=== PATIENT | female | born 1960 | race Caucasian/White ===

== ENCOUNTER → 2018-01-06 | Outpatient (CLI) | payer BC ==
[~2018-01-06] MED LIST: CALTRATE 600 +1 TAB PO; MASON NATURAL1200 MG PO; MULTIPLE VITAMI1 CAP PO; NATURE'S BLEND1 SG3 PO; VITAMIN B12 681 TAB PO; WELLBUTRIN XL150 MG PO
== END ==
LOC: MC.RAD 10:57
DX: N63.31 Unspecified lump in axillary tail of the right breast (principal)

== ENCOUNTER 2018-01-20 08:25 | Day surgery (SDC) | payer BC ==
[~2018-01-20] VITALS: Ht 162.6 cm; Wt 73.7 kg
[2018-01-20 08:44] VITALS: BP 112/67; PULSE 73; TEMP 98.2
[2018-01-20 10:43] VITALS: BP 114/57; PULSE 73; TEMP 98
[2018-01-20] MEDS ORDERED: NORCO 325 MG-51 TAB PO (10:48)
[2018-01-20 11:00] VITALS: BP 125/70; PULSE 70
[2018-01-20 11:15] VITALS: BP 121/64; PULSE 61
== END 2018-01-20 11:39 | disposition home or self-care (01) ==
LOC: SDCO 08:25
DX: C50.411 Malignant neoplasm of upper-outer quadrant of right female breast (principal); F32.9 Major depressive disorder, single episode, unspecified; Z90.710 Acquired absence of both cervix and uterus; Z90.721 Acquired absence of ovaries, unilateral; Z80.42 Family history of malignant neoplasm of prostate; Z80.0 Family history of malignant neoplasm of digestive organs; Z80.1 Family history of malignant neoplasm of trachea, bronchus and lung
CPT/HCPCS: C1788; J0690; J1644; J1885; J2250; J2405; J2704; J3010; J7120

== ENCOUNTER → 2018-03-17 | Outpatient (CLI) | payer BC ==
[~2018-03-17] MED LIST changes: +NORCO 325 MG-51 TAB PO
== END ==
LOC: MC.RAD 08:10
DX: C50.411 Malignant neoplasm of upper-outer quadrant of right female breast (principal); Z92.21 Personal history of antineoplastic chemotherapy

== ENCOUNTER 2018-03-25 15:12 | Outpatient (RCR) | payer BC ==
[2018-03-25] VITALS (9 sets, daily range): BP systolic 101–123; BP diastolic 59–83; PULSE 76–93; TEMP 98–98.1
[2018-03-25] MEDS ORDERED: AMOXICILLIN 8751 TAB PO (17:18)
== END 2018-03-25 20:30 | disposition home or self-care (01) ==
LOC: EUO 15:12
DX: C50.411 Malignant neoplasm of upper-outer quadrant of right female breast (principal)
CPT/HCPCS: J1644; J7050; P9016

== ENCOUNTER 2019-12-13 15:30 | Outpatient (RCR) | payer BC ==
[~2019-12-13 15:30] MED LIST changes: +AMOXICILLIN 8751 TAB PO
== END 2020-01-30 | disposition still patient (30) ==
LOC: WSPT
DX: I89.0 Lymphedema, not elsewhere classified (principal)

== ENCOUNTER 2020-03-18 12:45 | Outpatient (RCR) | payer BC | END 2020-04-27 15:21 | disposition home or self-care (01) | LOC: WSPT 12:45 | DX: I89.0 Lymphedema, not elsewhere classified (principal) ==

== ENCOUNTER → 2020-03-18 | Outpatient (CLI) | payer BC | LOC: MC.RAD 13:49 | DX: I89.0 Lymphedema, not elsewhere classified (principal) ==

== ENCOUNTER 2020-12-13 09:15 | Outpatient (RCR) | payer BC | END 2021-02-02 | LOC: MKS.ESL.PT | DX: H81.12 Benign paroxysmal vertigo, left ear (principal) ==

== ENCOUNTER → 2021-06-17 | Outpatient (CLI) | payer BC | LOC: COL.RAD 15:24 | DX: Z01.811 Encounter for preprocedural respiratory examination (principal); J44.9 Chronic obstructive pulmonary disease, unspecified; R91.8 Other nonspecific abnormal finding of lung field ==

== ENCOUNTER → 2021-06-25 | Outpatient (CLI) | payer BC | LOC: COL.RAD 07:41 | DX: Z01.818 Encounter for other preprocedural examination (principal); R91.1 Solitary pulmonary nodule; Z87.891 Personal history of nicotine dependence | CPT/HCPCS: Q9967 ==

== ENCOUNTER 2021-07-27 15:06 | Emergency (ER) | payer BC ==
[~2021-07-27] VITALS: Ht 162.6 cm; Wt 71.4 kg
[2021-07-27 15:13] VITALS: TEMP 98.4
[2021-07-27 16:38] VITALS: BP 132/80; PULSE 87
== END 2021-07-27 16:38 | disposition home or self-care (01) ==
LOC: COL.ER 15:06
DX: T18.128A Food in esophagus causing other injury, initial encounter (principal); R11.10 Vomiting, unspecified

== ENCOUNTER → 2021-11-28 | Outpatient (CLI) | payer BC ==
[~2021-11-28] MED LIST changes: +CBD; +MOBIC 7.5MG7.5 MG PO; +PROBIOTIC 2 BI1 EACH PO
== END ==
LOC: COL.RAD 10:08
DX: R91.8 Other nonspecific abnormal finding of lung field (principal); Z85.3 Personal history of malignant neoplasm of breast
CPT/HCPCS: Q9967

== ENCOUNTER 2021-12-15 06:49 | Outpatient (CLI) | payer BC ==
[~2021-12-15] VITALS: Ht 162.6 cm; Wt 71.9 kg
[2021-12-15] VITALS (18 sets, daily range): BP systolic 114–187; BP diastolic 65–111; PULSE 66–77; TEMP 97.7
[~2021-12-15 06:49] MED LIST changes: -CBD; -MOBIC 7.5MG7.5 MG PO; -PROBIOTIC 2 BI1 EACH PO
[2021-12-15] MEDS ORDERED: MOBIC 7.5MG7.5 MG PO (07:10)
[2021-12-15] MEDS ORDERED: CBD (07:13)
[2021-12-15] MEDS ORDERED: PROBIOTIC 2 BI1 EACH PO (07:14)
--- NOTE | 2021-12-15 11:50 | NUR ---
Pt and verbalized comforting in discharging home; went over discharge instructions and educations, no questions or concerns arose. L posterior puncture site CDI and covered with bandaid; VSS; PIV discontinued. Pt discharged with via wheelchair to [facility] at 1155.
== END 2021-12-15 11:55 | disposition home or self-care (01) ==
LOC: COL.RAD 06:49
DX: C50.411 Malignant neoplasm of upper-outer quadrant of right female breast (principal); R91.8 Other nonspecific abnormal finding of lung field
CPT/HCPCS: J3010

== ENCOUNTER 2023-08-05 13:45 | Outpatient (RCR) | payer BC ==
[~2023-08-05 13:45] MED LIST changes: -Iohexol 300 - 100 ML VIAL IV ONE; -NS 100 ML IV SCH
== END 2023-08-08 | disposition home or self-care (01) ==
LOC: WSPT
DX: I89.0 Lymphedema, not elsewhere classified (principal); Z85.3 Personal history of malignant neoplasm of breast

== ENCOUNTER → 2023-08-05 | Outpatient (CLI) | payer BC ==
[~2023-08-05] MED LIST changes: +CBD; +Iohexol 300 - 100 ML VIAL IV ONE; +MOBIC 7.5MG7.5 MG PO; +NS 100 ML IV SCH; +PROBIOTIC 2 BI1 EACH PO
== END ==
LOC: COL.RAD 10:30
DX: R91.8 Other nonspecific abnormal finding of lung field (principal)
CPT/HCPCS: Q9967

== ENCOUNTER → 2024-02-22 | Outpatient (CLI) | payer BC ==
[~2024-02-22] MED LIST changes: +Iohexol 300 - 100 ML VIAL IV ONE; +NS 100 ML IV SCH
== END ==
LOC: COL.RAD 13:46
DX: R91.1 Solitary pulmonary nodule (principal)
CPT/HCPCS: Q9967